=== PATIENT | female | born 1960 | race Caucasian/White ===

== ENCOUNTER 2017-07-11 18:06 | Emergency (ER) | payer OTHER ==
[~2017-07-11] VITALS: Ht 165.1 cm; Wt 70.3 kg
[2017-07-11] MEDS ORDERED: LAMICTAL100 MG PO (18:24)
[2017-07-11] MEDS ORDERED: AMITRIPTYLINE H10 M3 PO (18:25)
[2017-07-11] MEDS ORDERED: CITALOPRAM HBR40 MG PO (18:26)
[2017-07-11] MEDS ORDERED: XANAX 0.5 MG0.5 MG PO (19:06)
[2017-07-11 19:30] VITALS: BP 129/82
== END 2017-07-11 19:56 | disposition home or self-care (01) ==
LOC: M.ERS 18:06
DX: F41.9 Anxiety disorder, unspecified (principal); F17.210 Nicotine dependence, cigarettes, uncomplicated

== ENCOUNTER 2017-07-17 14:09 | Emergency (ER) | payer OTHER ==
[~2017-07-17] VITALS: Ht 165.1 cm; Wt 68.0 kg
[~2017-07-17 14:09] MED LIST: AMITRIPTYLINE H10 M3 PO; CITALOPRAM HBR40 MG PO; LAMICTAL100 MG PO; XANAX 0.5 MG0.5 MG PO
[2017-07-17] MEDS ORDERED: XANAX 0.5 MG0.5 MG PO (14:38)
[2017-07-17] MEDS ORDERED: VISTARIL 25 MG25 M1 PO (14:38)
[2017-07-17 14:52] VITALS: BP 139/90
== END 2017-07-17 14:53 | disposition home or self-care (01) ==
LOC: M.ERS 14:09
DX: F41.9 Anxiety disorder, unspecified (principal)